=== PATIENT | male | born 1940 | race Caucasian/White ===

== ENCOUNTER → 2016-09-17 | Outpatient (CLI) | payer BC ==
[2016-09-17 10:13] LABS: ESTIMATED AVERAGE GLUCOSE 105 mg/dl; HA1C FLAG Normal (Normal)
[2016-09-17 10:39] LABS: ALT/SGPT 21 U/L (12-78); AST/SGOT 15 U/L (15-37); BLOOD UREA NITROGEN 9 mg/dl (7-18); BUN/CREATININE RATIO 12.6 (10-20); CALCIUM 9.3 mg/dl (8.5-10.1); CARBON DIOXIDE 31 mmol/L (21-32); CHLORIDE 104 mmol/L (98-107); CHOLESTEROL 189 mg/dl (0-200); CREATININE 0.72 mg/dl (0.60-1.40); GLUCOSE 76 mg/dl (70-99); SODIUM 143 mmol/L (136-145); TRIGLYCERIDES 195 mg/dl (0-150); VERY LOW DENSITY LIPOPROT CALC 39 mg/dl
[2016-09-17 10:41] LABS: ALB/GLOB RATIO 0.9 (0.9-2); ALKALINE PHOSPHATASE 76 U/L (45-117); CHOLESTEROL/HDL RATIO 3.1; HDL CHOLESTEROL 61 mg/dl; LDL CHOLESTEROL CALCULATED 89 mg/dl
--- NOTE | 2016-09-21 10:09 | CODING QUERY MEDICAL NECESSITY ---
SUPPORTING DIAGNOSIS NEEDED A supporting diagnosis is required for the test/procedure performed on this patient in order for us to be reimbursed by the patient's insurance. Please provide a supporting diagnosis for the following test/procedure listed below next to the test name along with your signature. *If there is no additional diagnosis for this patient that would support the following test/procedure please document that below next to the test/procedure. Test(s)/Procedure(s) that require a supporting diagnosis: * GLYCATED HEMOGLOBIN DIAGNOSIS: * DOS: 09/17/16 Provider Signature: Date: Thank you Joaquina Phelan Health Information Management Once completed, please kindly fax back to [phone] For questions please call [phone]
== END | disposition home or self-care (01) ==
LOC: C.LAB1850 09:13
PROVIDERS: ATTEND Family Medicine
DX: E78.00 Pure hypercholesterolemia, unspecified (principal); R73.03 Prediabetes

== ENCOUNTER → 2017-04-02 | Outpatient (CLI) | payer BC ==
[2017-04-02 12:19] LABS: ALT/SGPT 22 U/L (12-78); BLOOD UREA NITROGEN 14 mg/dl (7-18); BUN/CREATININE RATIO 18.8 (10-20); CALCIUM 9.5 mg/dl (8.5-10.1); CARBON DIOXIDE 31 mmol/L (21-32); CHLORIDE 105 mmol/L (98-107); CHOLESTEROL 198 mg/dl (0-200); CREATININE 0.74 mg/dl (0.60-1.40); GLUCOSE 81 mg/dl (70-99); POTASSIUM 4.3 mmol/L (3.5-5.1); SODIUM 141 mmol/L (136-145)
[2017-04-02 12:22] LABS: ALB/GLOB RATIO 0.9 (0.9-2); ALKALINE PHOSPHATASE 75 U/L (45-117); AST/SGOT 16 U/L (15-37); CHOLESTEROL/HDL RATIO 3.5; HDL CHOLESTEROL 57 mg/dl; LDL CHOLESTEROL CALCULATED 114 mg/dl; TRIGLYCERIDES 134 mg/dl (0-150); VERY LOW DENSITY LIPOPROT CALC 27 mg/dl
== END | disposition home or self-care (01) ==
LOC: C.LAB1850 10:15
PROVIDERS: ATTEND Family Medicine
DX: E78.00 Pure hypercholesterolemia, unspecified (principal); R73.03 Prediabetes

== ENCOUNTER 2021-01-28 09:04 | Inpatient (IN) ==
--- NOTE | 2021-01-28 09:21 | Emergency Department Note ---
Impression & Plan Pneumonia, Hypoxia ED Provider Note NAME: POLLY CHIN JR AGE: 80 SEX: M : 1940 ARRIVES VIA: Walk-In INFORMANT: Patient ED PROVIDER(S): River Cabral DO CHIEF COMPLAINT: Chest pain and Shortness of breath HPI: Patient is a 80-year-old male who presents to the ER for shortness of breath. It has been present for the past 3 days getting significantly worse. He admits to a recent trip from [place] down to [place] and across to [place]. He did this all by driving. He notes right-sided lower chest pain. He has shortness of breath with any kind of exertion. Denies any belly pain nausea vomiting or diarrhea. No dysuria, urgency, or frequency. No other exacerbating or remitting factors. No blood thinners. No history of COPD or asthma but does admit to smoking for 50 years. No oxygen requirements. ROS: See above HPI for pertinent positives & negatives. A total of 10 systems reviewed and were otherwise negative. PAST MEDICAL HISTORY:See Below PAST SURGICAL HISTORY:See Below FAMILY HISTORY:See Below SOCIAL HISTORY:See Below HOME MEDICATIONS:See Below ALLERGIES:See Below VITALS:See Below PHYSICAL EXAMINATION: GENERAL: Sitting up in bed, alert, well appearing, well nourished, no distress, non-toxic EYE EXAM: normal conjunctiva. OROPHARYNX: no exudate, no erythema, lips, buccal mucosa, and tongue normal and mucous membranes are moist NECK: supple, no nuchal rigidity, no adenopathy, non-tender LUNGS: Clear to auscultation. Normal chest wall mechanics HEART: no murmurs, S1 normal and S2 normal ABDOMEN: abdomen soft, non-tender, normo-active bowel sounds, no masses, no rebound or guarding. UPPER EXTREMITIES: upper extremities are grossly normal. LOWER EXTREMITIES: No pitting edema. Calves are equal bilateral NEURO EXAM: Normal sensorium, cranial nerves II-XII grossly intact, normal speech, no gross weakness of arms, no gross weakness of legs. MEDICAL DECISION MAKING: Patient is a 80-year-old male who presents the ER for shortness of breath with a recent history of travel. Found to be hypoxic at 86% on room air. IV was established blood was obtained. He was placed on 2 L nasal cannula. Labs show leukocytosis of 13,000. No significant anemia. BMP with slightly elevated glucose. LFTs bilirubin troponin was negative. Lipase was normal. Covid was ordered and pending. He was given IV Rocephin and azithromycin. He was updated bedside. Discussed with Dr. Zambrano and admitted for further work-up following a negative CT angio of the chest which showed a multifocal pneumonia but no PEs. Triage Nursing notes reviewed. Limited review of prior medical records performed Vital Signs: reviewed and remarkable for Hypoxia Differential diagnosis: Differential diagnoses includes but is not limited to pneumonia, bronchitis, COPD/Asthma exacerbation, pneumothorax, pulmonary embolism, congestive heart failure, acute coronary syndrome ER treatment provided: See below Diagnostics interpreted by me: ECG: Sinus rhythm rate of 69 Left axis Poor baseline Incomplete right bundle QTC 411 Cardiac Monitoring: An order was placed for continuous cardiac monitoring. The monitor shows a rate of 62 with sinus rhythm. Laboratory studies: As stated above and show below. Imaging studies: CT angio chest shows multifocal pneumonia Consultation(s): Discussed with not any hospitalist Nevaeh Zambrano for admission Procedures: none Critical Care: I have personally spent 45 minutes of critical care time in the direct management of this patient. This includes bedside care, interpretation of diagnostic studies, and testing, discussion with consultants, patient, and family members, and other required patient management activities. This 45 minutes is in excess of all separately billable procedures. 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 left wrist Hypercholesterolemia Ocular migraine Prediabetes Surgical History Hx of tonsillectomy Family History Grandmother Brain cancer Mother Depression Father Dementia Hyperlipidemia Son Coronary heart disease Denies family history of Colon cancer Ovarian cancer Prostate cancer Myocardial infarction Social History Smoking Status: Former smoker Tobacco Type: Cigarettes Age Started Using Tobacco: 16; Age Quit Using Tobacco: 66; packs per day: 1; Years Smoked: 50; Hx Alcohol Use: Yes Alcohol type: beer Alcohol Intake Frequency Comment: 1-2/ daily Hx Substance Use: No marital status: Single Current Living Situation: Alone Current Living Situation Comment: w/ 2 dogs current occupational status: retired Feels Safe at Home: Yes Diet Comment: avoids yeast and alcohols adding in more veggies less red meat Dental Care, Regularly: No Physical Activity Frequency: 3-4 Times per Week Physical Activity Frequency Comment: yard work, wood cutting Seatbelt Use: sometimes Do you think of yourself as: straight/heterosexual Allergies Allergies Allergy/AdvReac Type Severity Reaction Status Date / Time No Known Drug Allergies Allergy Unknown Verified 01/28/21 10:07 coconut AdvReac Severe passes out Unverified 01/28/21 10:09 Home Meds Home Medications Medication Instructions Recorded Confirmed pravastatin 20 mg PO HS 01/28/21 01/28/21 Previous Rx's Medication Instructions Recorded diph,pertuss(acel),tet vac(PF) 2 0.5 ml IM ONCE #0.5 ml 12/03/20 Lf-(2.5-5-3-5mcg)-5 Lf/0.5 mL IM syringe varicella-zoster glycoE [id number] 0.5 ml IM ONCE #1 ea 12/03/20 adj(PF) 50 mcg/0.5 mL IM susp, kit Results & Data (ED) Vital Signs Vital Signs - 24 hr 01/28/21 09:07 01/28/21 09:20 01/28/21 09:26 Temperature 36.9 C Temperature Source Temporal Artery Scan Oral Pulse Rate 76 67 Pulse Rate from SpO2 Sensor 67 Respiratory Rate 20 22 Respiratory Effort / Characteristics Non-Labored Spontaneous Short of Breath Respiratory Depth Normal Normal Respiratory Pattern Regular Blood Pressure 122/63 Blood Pressure Mean 82 Blood Pressure Position Sitting Pulse Oximetry 86 L 86 L 96 Oxygen Delivery Method Room Air Nasal Cannula Oxygen Flow Rate 0 Sepsis Recent Fever Within 48 Hours No Sepsis New/Unexplained Change in Mental Status N/A Sepsis Action Taken by Nursing No Action Required Oxygen Flow Rate - Titration 2 Pulse Oximetry Post Tiitration 95 01/28/21 09:30 01/28/21 09:53 01/28/21 10:00 Temperature Temperature Source Pulse Rate 66 71 69 Pulse Rate from SpO2 Sensor 68 71 68 Respiratory Rate 22 Respiratory Effort / Characteristics Respiratory Depth Respiratory Pattern Blood Pressure 145/89 H 129/73 Blood Pressure Mean 107 91 Blood Pressure Position Pulse Oximetry 95 94 94 Oxygen Delivery Method Oxygen Flow Rate Sepsis Recent Fever Within 48 Hours Sepsis New/Unexplained Change in Mental Status Sepsis Action Taken by Nursing Oxygen Flow Rate - Titration Pulse Oximetry Post Tiitration 01/28/21 10:30 01/28/21 11:00 01/28/21 11:30 Temperature Temperature Source Pulse Rate 67 77 62 Pulse Rate from SpO2 Sensor 67 70 64 Respiratory Rate 26 H Respiratory Effort / Characteristics Respiratory Depth Respiratory Pattern Blood Pressure 118/59 L 120/61 Blood Pressure Mean 78 80 Blood Pressure Position Pulse Oximetry 91 Oxygen Delivery Method Oxygen Flow Rate Sepsis Recent Fever Within 48 Hours Sepsis New/Unexplained Change in Mental Status Sepsis Action Taken by Nursing Oxygen Flow Rate - Titration Pulse Oximetry Post Tiitration 01/28/21 12:00 01/28/21 12:30 01/28/21 13:24 Temperature Temperature Source Pulse Rate 64 66 55 L Pulse Rate from SpO2 Sensor Respiratory Rate 29 H 24 27 H Respiratory Effort / Characteristics Respiratory Depth Respiratory Pattern Blood Pressure 114/57 L 117/63 123/85 Blood Pressure Mean 76 81 97 Blood Pressure Position Pulse Oximetry Oxygen Delivery Method Oxygen Flow Rate Sepsis Recent Fever Within 48 Hours Sepsis New/Unexplained Change in Mental Status Sepsis Action Taken by Nursing Oxygen Flow Rate - Titration Pulse Oximetry Post Tiitration Laboratory Data Result diagrams: 01/28/21 09:27 01/28/21 09:27 Lab Results 01/28/21 01/28/21 01/28/21 Range/Units 09:27 09:27 09:27 WBC 13.79 H (4.8-10.8) K/uL RBC 4.59 L (4.7-6.1) M/uL Hgb 13.1 L (14.0-18.0) g/dL POC Hgb (14.0-18.0) g/dl Hct 42.3 (42-52) % POC Hct (42-52) % MCV 92.2 (80-100) fL MCH 28.5 (25-34) pg MCHC 31.0 L (32-36) g/dL RDW Std Deviation 50.9 H (36.4-46.3) fL RDW Coeff of Merle 15.1 H (11.5-14.5) % Plt Count 254 (130-400) K/uL MPV 10.0 (7.4-10.4) fL Immature Gran % (Auto) 0.1 % Neut % (Auto) 82.0 % Lymph % (Auto) 11.5 % Sargent % (Auto) 6.2 % Eos % (Auto) 0.1 % Baso % (Auto) 0.1 % Neut # (Auto) 11.30 H (1.4-6.5) K/uL Lymph # (Auto) 1.58 (1.2-3.4) K/uL Sargent # (Auto) 0.85 H (0.11-0.59) K/uL Eos # (Auto) 0.02 (0-0.5) K/uL Baso # (Auto) 0.02 (0-0.2) K/uL Immature Gran # (Auto) 0.02 (0.00-0.02) K/uL ESR (0-20) mm/hr APTT 32.2 H (21.0-31.0) Seconds PTT Ratio 1.2 POC Sodium (135-144) mmol/L Sodium 140 (136-145) mmol/L POC Potassium (3.3-5.0) mmol/L Potassium 3.9 (3.5-5.1) mmol/L POC Chloride (101-112) mmol/L Chloride 105 (98-107) mmol/L Carbon Dioxide 33 H (21-32) mmol/L POC Total CO2 (24-31) mmol/L Anion Gap 2.0 L (3-11) POC Anion Gap (16-25) mmol/L POC BUN (7-18) mg/dl BUN 17 (7-18) mg/dl Creatinine 0.78 (0.6-1.4) mg/dl POC Creatinine (0.6-1.3) mg/dl Est Cr Clr Drug Dosing 95.8 ml/min Est GFR ( Amer) 100.2 ml/min Est GFR (Non-Af Amer) 86.5 ml/min BUN/Creatinine Ratio 21.4 H (10-20) Glucose 107 H (70-99) mg/dl POC Glucose (other) (70-99) mg/dl Calcium 9.2 (8.5-10.1) mg/dl POC Ioniz Calcium Luis (1.12-1.32) mmol/l Total Bilirubin 0.9 (0.2-1) mg/dl AST 25 (15-37) U/L ALT 36 (12-78) U/L Alkaline Phosphatase 98 (45-117) U/L Troponin I < 0.015 (0-0.045) ng/ml Total Protein 8.2 (6.4-8.2) gm/dl Albumin 2.9 L (3.4-5.0) gm/dl Globulin 5.3 H (2.5-4.0) gm/dl Albumin/Globulin Ratio 0.5 L (0.9-2) Lipase 206 (73-393) U/L COVID-19 Eval Order SARS-CoV-2 (PCR) (Negative) 01/28/21 01/28/21 01/28/21 Range/Units 09:27 09:34 10:35 WBC (4.8-10.8) K/uL RBC (4.7-6.1) M/uL Hgb (14.0-18.0) g/dL POC Hgb 13.9 L (14.0-18.0) g/dl Hct (42-52) % POC Hct 41 L (42-52) % MCV (80-100) fL MCH (25-34) pg MCHC (32-36) g/dL RDW Std Deviation (36.4-46.3) fL RDW Coeff of Merle (11.5-14.5) % Plt Count (130-400) K/uL MPV (7.4-10.4) fL Immature Gran % (Auto) % Neut % (Auto) % Lymph % (Auto) % Sargent % (Auto) % Eos % (Auto) % Baso % (Auto) % Neut # (Auto) (1.4-6.5) K/uL Lymph # (Auto) (1.2-3.4) K/uL Sargent # (Auto) (0.11-0.59) K/uL Eos # (Auto) (0-0.5) K/uL Baso # (Auto) (0-0.2) K/uL Immature Gran # (Auto) (0.00-0.02) K/uL ESR 93 H (0-20) mm/hr APTT (21.0-31.0) Seconds PTT Ratio POC Sodium 142 (135-144) mmol/L Sodium (136-145) mmol/L POC Potassium 3.9 (3.3-5.0) mmol/L Potassium (3.5-5.1) mmol/L POC Chloride 101 (101-112) mmol/L Chloride (98-107) mmol/L Carbon Dioxide (21-32) mmol/L POC Total CO2 28 (24-31) mmol/L Anion Gap (3-11) POC Anion Gap 18.0 (16-25) mmol/L POC BUN 16 (7-18) mg/dl BUN (7-18) mg/dl Creatinine (0.6-1.4) mg/dl POC Creatinine 0.7 (0.6-1.3) mg/dl Est Cr Clr Drug Dosing ml/min Est GFR ( Amer) ml/min Est GFR (Non-Af Amer) ml/min BUN/Creatinine Ratio (10-20) Glucose (70-99) mg/dl POC Glucose (other) 112 H (70-99) mg/dl Calcium (8.5-10.1) mg/dl POC Ioniz Calcium Luis 1.14 (1.12-1.32) mmol/l Total Bilirubin (0.2-1) mg/dl AST (15-37) U/L ALT (12-78) U/L Alkaline Phosphatase (45-117) U/L Troponin I (0-0.045) ng/ml Total Protein (6.4-8.2) gm/dl Albumin (3.4-5.0) gm/dl Globulin (2.5-4.0) gm/dl Albumin/Globulin Ratio (0.9-2) Lipase (73-393) U/L COVID-19 Eval Order Covid19 at [facility] SARS-CoV-2 (PCR) (Negative) 01/28/21 Range/Units 10:35 WBC (4.8-10.8) K/uL RBC (4.7-6.1) M/uL Hgb (14.0-18.0) g/dL POC Hgb (14.0-18.0) g/dl Hct (42-52) % POC Hct (42-52) % MCV (80-100) fL MCH (25-34) pg MCHC (32-36) g/dL RDW Std Deviation (36.4-46.3) fL RDW Coeff of Merle (11.5-14.5) % Plt Count (130-400) K/uL MPV (7.4-10.4) fL Immature Gran % (Auto) % Neut % (Auto) % Lymph % (Auto) % Sargent % (Auto) % Eos % (Auto) % Baso % (Auto) % Neut # (Auto) (1.4-6.5) K/uL Lymph # (Auto) (1.2-3.4) K/uL Sargent # (Auto) (0.11-0.59) K/uL Eos # (Auto) (0-0.5) K/uL Baso # (Auto) (0-0.2) K/uL Immature Gran # (Auto) (0.00-0.02) K/uL ESR (0-20) mm/hr APTT (21.0-31.0) Seconds PTT Ratio POC Sodium (135-144) mmol/L Sodium (136-145) mmol/L POC Potassium (3.3-5.0) mmol/L Potassium (3.5-5.1) mmol/L POC Chloride (101-112) mmol/L Chloride (98-107) mmol/L Carbon Dioxide (21-32) mmol/L POC Total CO2 (24-31) mmol/L Anion Gap (3-11) POC Anion Gap (16-25) mmol/L POC BUN (7-18) mg/dl BUN (7-18) mg/dl Creatinine (0.6-1.4) mg/dl POC Creatinine (0.6-1.3) mg/dl Est Cr Clr Drug Dosing ml/min Est GFR ( Amer) ml/min Est GFR (Non-Af Amer) ml/min BUN/Creatinine Ratio (10-20) Glucose (70-99) mg/dl POC Glucose (other) (70-99) mg/dl Calcium (8.5-10.1) mg/dl POC Ioniz Calcium Luis (1.12-1.32) mmol/l Total Bilirubin (0.2-1) mg/dl AST (15-37) U/L ALT (12-78) U/L Alkaline Phosphatase (45-117) U/L Troponin I (0-0.045) ng/ml Total Protein (6.4-8.2) gm/dl Albumin (3.4-5.0) gm/dl Globulin (2.5-4.0) gm/dl Albumin/Globulin Ratio (0.9-2) Lipase (73-393) U/L COVID-19 Eval Order SARS-CoV-2 (PCR) NEGATIVE (Negative) Administered Medications Discontinued Medications Azithromycin (Azithromycin 250 Mg Tab) 500 mg PO NOW ONE Stop: 01/28/21 10:23 Last Admin: 01/28/21 10:30 Dose: 500 mg Documented by: [id number] Ceftriaxone Sodium (Rocephin) 1,000 mg in 50 mls @ 100 mls/hr IV NOW STA Stop: 01/28/21 10:51 Last Infusion: 01/28/21 11:07 Dose: 0 mls/hr Documented by: [id number] Admin: 01/28/21 10:30 Dose: 100 mls/hr Documented by: [id number] Ioversol (Optiray 320 125ml) 120 ml IV ONCE ONE Stop: 01/28/21 09:45 Last Admin: 01/28/21 09:44 Dose: 120 ml Documented by: [id number] Imaging Data Radiologist's Impression: Chest CTA 01/28/21 09:20 CT ANGIOGRAM OF THE CHEST CLINICAL HISTORY: Cough and dyspnea. COMPARISON STUDY: Chest x-ray dated 12/02/2015. TECHNIQUE: Following the IV administration of 120 cc of Optiray 320, CT angiogram of the chest was performed from the upper abdomen to the thoracic i nlet utilizing the pulmonary embolus protocol. Images are reviewed in the axial, sagittal, and coronal planes. 3-D MIPS images are created and assessed. IV contrast was administered without complication. A dose lowering technique was utilized adhering to the principles of ALARA. CT DOSE: 545.17 mGy.cm FINDINGS: Thyroid: Imaged portions of the thyroid gland are normal in size and attenuation. Thoracic aorta: There is mild atherosclerotic calcification of the thoracic aorta. There is nonaneurysmal dilatation of the ascending thoracic aorta which measures up to 4.1 cm in diameter. The remainder of the thoracic aorta is normal in caliber and the arch demonstrates bovine variant anatomy. No dissection is seen. Pulmonary vasculature: The pulmonary trunk is normal in caliber. There are no filling defects identified in main, lobar, or segmental pulmonary branches to suggest pulmonary embolus. Evaluation of the peripheral branches is degraded by motion artifact. Heart: The heart is mildly enlarged and without pericardial effusion. Lungs and pleural spaces: Emphysematous change is noted. There is extensive pat dominga airspace consolidation throughout the right upper lobe. Mild consolidative changes seen in the right middle and right lower lobes. The left lung appears clear. There is a small right pleural effusion. The trachea and central airways are patent. Mediastinum: There is no mediastinal lymphadenopathy. Mary: Mildly enlarged right hilar nodes measure up to 13 mm in short axis. These are likely reactive. Axillae: There is no axillary lymphadenopathy. Upper abdomen: There is a tiny hiatal hernia. Subcentimeter cysts are noted in the liver. Skeletal structures: The skeletal structures are osteopenic. Mild degenerative change is seen throughout the thoracic spine. No lytic or blastic bony lesions are seen. IMPRESSION: 1. There is no evidence of pulmonary embolus in the main, lobar, or segmental pulmonary arteries. 2. Cardiomegaly and emphysema. 3. Multifocal airspace consolidation is seen throughout the right lung, most confluent in the right upper lobe. The appearance is typical for multifocal pneumonia. Clinical correlation will be required and radiographic follow-up to resolution is recommended. 4. Small right parapneumonic effusion. 5. Additional findings as above. ACT 112: Negative or not required by law. Electronically signed by: Wei Ramirez M.D. 01/28/2021 10:25 AM Discharge Plan Visit Data Chief Complaint: Shortness of Breath/Dyspnea Stated Complaint: SOB, ABDOMINAL PAIN ED Provider: River Cabral Discharge Problem: Pneumonia, Hypoxia Forms Stand Alone Forms: [facility] Prescriptions Prescriptions: No Action Adacel(Tdap Adolesn/Adult)(PF) 2 Lf-(2.5-5-3-5 mcg)-5Lf/0.5 mL syringe 0.5 ml IM ONCE Qty: 0.5 RF: 0 Shingrix (PF) 50 mcg/0.5 mL suspension for reconstitution 0.5 ml IM ONCE Qty: 1 RF: 1 pravastatin 20 mg tablet 20 mg PO HS RF: 0 Discharge Problem: Pneumonia Qualifiers: Pneumonia type: due to unspecified organism Laterality: unspecified laterality Lung location: unspecified part of lung Qualified Code(s): J18.9 - Pneumonia, unspecified organism
[2021-01-28 09:42] LABS: Basophils # (auto) 0.02 K/uL (0-0.2); Basophils % (auto) 0.1 %; Eosinophils # (auto) 0.02 K/uL (0-0.5); Eosinophils % (auto) 0.1 %; Hematocrit (blood only) 42.3 % (42-52); Hemoglobin 13.1 g/dL (14.0-18.0); Immature Granulocytes # (auto) 0.02 K/uL (0.00-0.02); Immature Granulocytes % (auto) 0.1 %; Lymphocytes # (auto) 1.58 K/uL (1.2-3.4); Lymphocytes % (auto) 11.5 %; Mean Corpuscular Hemoglobin 28.5 pg (25-34); Mean Corpuscular Volume 92.2 fL (80-100); Monocytes # (auto) 0.85 K/uL (0.11-0.59); Monocytes % (auto) 6.2 %; Platelet Count 254 K/uL (130-400); RDW Coefficient of Variation 15.1 % (11.5-14.5); RDW Standard Deviation 50.9 fL (36.4-46.3); Red Blood Count 4.59 M/uL (4.7-6.1); White Blood Count 13.79 K/uL (4.8-10.8)
[2021-01-28] MEDS ORDERED: OPTIRAY 320 125ml IV ONE (09:44)
[2021-01-28 09:46] LABS: iSTAT Creatinine 0.7 mg/dl (0.6-1.3); iSTAT Hemoglobin 13.9 g/dl (14.0-18.0); iSTAT Ionized Calcium 1.14 mmol/l (1.12-1.32); iSTAT Potassium 3.9 mmol/L (3.3-5.0)
[2021-01-28 09:53] LABS: Partial Thromboplastin Ratio 1.2; Partial Thromboplastin Time 32.2 Seconds (21.0-31.0)
[2021-01-28 10:01] LABS: Alanine Aminotransferase 36 U/L (12-78); Albumin Level 2.9 gm/dl (3.4-5.0); Aspartate Aminotransferase 25 U/L (15-37); BUN Creatinine Ratio 21.4 (10-20); Blood Urea Nitrogen 17 mg/dl (7-18); Calcium 9.2 mg/dl (8.5-10.1); Carbon Dioxide 33 mmol/L (21-32); Chloride 105 mmol/L (98-107); Creatinine Clr Calc Pharmacy 95.8 ml/min; Est GFR (African American) 100.2 ml/min; Est GFR (Non-African American) 86.5 ml/min; Glucose 107 mg/dl (70-99); Lipase 206 U/L (73-393); Potassium 3.9 mmol/L (3.5-5.1); Sodium 140 mmol/L (136-145)
[2021-01-28 10:06] LABS: Albumin Globulin Ratio 0.5 (0.9-2); Alkaline Phosphatase 98 U/L (45-117); Bilirubin,Total 0.9 mg/dl (0.2-1); Globulin 5.3 gm/dl (2.5-4.0); Total Protein 8.2 gm/dl (6.4-8.2); Troponin I < 0.015 ng/ml (0-0.045)
[2021-01-28] MEDS ORDERED: AZITHROMYCIN 250 MG TAB PO ONE (10:22)
[2021-01-28] MEDS ORDERED: cefTRIAXone SODIUM 1,000 MG/50 ML BAG IV STA (10:22)
--- NOTE | 2021-01-28 10:26 | CT Scan Report ---
CT ANGIOGRAM OF THE CHEST CLINICAL HISTORY: Cough and dyspnea. COMPARISON STUDY: Chest x-ray dated 12/02/2015. TECHNIQUE: Following the IV administration of 120 cc of Optiray 320, CT angiogram of the chest was pe rformed from the upper abdomen to the thoracic inlet utilizing the pulmonary embolus protocol. Images are reviewed in the axial, sagittal, and coronal planes. 3-D MIPS images are created and assessed. I V contrast was administered without complication. A dose lowering technique was utilized adhering to the principles of ALARA. CT DOSE: 545.17 mGy.cm FINDINGS: Thyroid: Imaged portions of the thyroid gland are normal in size and attenuation. Thoracic aorta: There is mild atherosclerotic calcification of the thoracic aorta. There is nonaneury smal dilatation of the ascending thoracic aorta which measures up to 4.1 cm in diameter. The remainde r of the thoracic aorta is normal in caliber and the arch demonstrates bovine variant anatomy. No dis section is seen. Pulmonary vasculature: The pulmonary trunk is normal in caliber. There are no filling defects identif ied in main, lobar, or segmental pulmonary branches to suggest pulmonary embolus. Evaluation of the p eripheral branches is degraded by motion artifact. Heart: The heart is mildly enlarged and without pericardial effusion. Lungs and pleural spaces: Emphysematous change is noted. There is extensive patchy airspace consolida tion throughout the right upper lobe. Mild consolidative changes seen in the right middle and right l ower lobes. The left lung appears clear. There is a small right pleural effusion. The trachea and rosie tral airways are patent. Mediastinum: There is no mediastinal lymphadenopathy. Mary: Mildly enlarged right hilar nodes measure up to 13 mm in short axis. These are likely reactive. Axillae: There is no axillary lymphadenopathy. Upper abdomen: There is a tiny hiatal hernia. Subcentimeter cysts are noted in the liver. Skeletal structures: The skeletal structures are osteopenic. Mild degenerative change is seen through out the thoracic spine. No lytic or blastic bony lesions are seen. IMPRESSION: 1. There is no evidence of pulmonary embolus in the main, lobar, or segmental pulmonary arteries. 2. Cardiomegaly and emphysema. 3. Multifocal airspace consolidation is seen throughout the right lung, most confluent in the right u pper lobe. The appearance is typical for multifocal pneumonia. Clinical correlation will be required and radiographic follow-up to resolution is recommended. 4. Small right parapneumonic effusion. 5. Additional findings as above. ACT 112: Negative or not required by law. Electronically signed by: Wei Ramirez M.D. 01/28/2021 10:25 AM
[2021-01-28] MEDS ORDERED: ALBUT/IPRATROP 3MG/0.5MG NEB 3 ML VIAL NEB PRN (12:53)
--- NOTE | 2021-01-28 12:59 | History & Physical Report ---
Date of Service January 28, 2021 Assessment & Plan (1) Pneumonia: Multifocal Pneumonia: Consolidation on CXR, pleuritic chest pain, WBC 13.79, on supplemental oxygen, no sputum production - blood culture, sputum culture pending - Legionella, mycoplasma, influenza A/B, aspergillus- pending - COVID negative - Continue Rocephin and Azithromycin- if clinical course changes would change to Zosyn for pseudomonal coverage - No evidence of shock/.organ dysfunction - CRP 23, ESR, 93, PCT <0.015 - with associated pleural effusion, small no acute need to tap - Follow clinically if course worsens consider BAL- If effusion increases diagnostic evaluation and culture -Continue oxygen support for SPO2 >92%; HFNC available if needed. (2) Hypoxia: Emphsyematous changes on CT scan of lung - not on chronic home inhalers or oxygen - Infective atelectasis lucinda - scheduled Combivent inhalers for dyspnea/hypoxia- re-evaluate efficacy/need (3) Prediabetes: Follow in house - regular diet for now - coverage if >180 notify provider (4) Hypercholesterolemia: Continue statin (5) DVT prophylaxis: Lovenox SQ History of Present Illness Primary Care Provider: Delta Avitia, III, IRRIGATIONIST 80 YOM with past medical history of: HLD, Tick bite in November, hand fracture. Patient comes to the emergency room for evaluation of right pleuritic chest pain and dyspnea. This has been ongoing for the the past 5 days. This started with increase in dyspnea after walking about 50-75 feet, where he would have to stop and catch his breath. The pleuritic chest pain started around Wednesday and was getting worse. The patienthas received his COVD 19 vaccines and his influenza in 2019. His COVID 19 test is negative. The patient has spent the past 2 weeks traveling to [facility] where he spent time with his daughter and also helped clean out a salt water swimming pool, that he reports was "pretty dirty and mucky". They used chemicals to clean the pool and he did not wear a respirator. He then traveled from [place] to [place] and then to [facility]- this trip was done by car. He stayed in 2 different hotels at that time. When he got to [facility], [place] he flew back to [employer]. The persons he traveled with are not ill. He had a CTA of the chest performed in the EMD that was negative for PE, but with hyperdensity at the right upper lobe at the periphery, with patchy consolidation that extends into the middle lower lobe associated with small right pleural effusion. The patient denies any fevers or chills, he does have a cough but is nonproductive. He smoked up until he retired. He denies any other history of travel or pulmonary problems. In the [facility] he was started on Rocephin and Azithromycin. After hospitalist evaluation blood cultures, sputum cultures were ordered as well as other bio-mar kers, viral and bacterial serology. Patient will be admitted to the PCU and continue following his culture results as well as symptoms. Allergies Allergy/AdvReac Type Severity Reaction Status Date / Time No Known Drug Allergies Allergy Unknown Verified 01/28/21 10:07 coconut AdvReac Severe passes out Unverified 01/28/21 10:09 Home Medications Medication Instructions Recorded Confirmed Type diph,pertuss(acel),tet vac(PF) 2 0.5 ml IM ONCE #0.5 ml 12/03/20 12/03/20 Rx Lf-(2.5-5-3-5mcg)-5 Lf/0.5 mL IM syringe varicella-zoster glycoE vacc-AS01B 0.5 ml IM ONCE #1 ea 12/03/20 12/03/20 Rx adj(PF) 50 mcg/0.5 mL IM susp, kit pravastatin 20 mg PO HS 01/28/21 01/28/21 History Past Med/Surg History Medical History Erectile disorder due to medical 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 left wrist Hypercholesterolemia Ocular migraine Prediabetes Surgical History Hx of tonsillectomy Family History Grandmother Brain cancer Mother Depression Father Dementia Hyperlipidemia Son Coronary heart disease Denies family history of Colon cancer Ovarian cancer Prostate cancer Myocardial infarction Social History Smoking Status: Former smoker Tobacco Type: Cigarettes Age Started Using Tobacco: 16; Age Quit Using Tobacco: 66; packs per day: 1; Years Smoked: 50; Smoking End Date: 2006; Hx Alcohol Use: Yes Alcohol type: beer and wine Alcohol Intake Frequency Comment: 1-2/ daily Hx Substance Use: No Preferred Language: Estonian Communication Ability: Effective Pet [employer] Deboner Required: No Beliefs That Will Affect Care: None marital status: Single Current Living Situation: Alone Current Living Situation Comment: w/ 2 dogs current occupational status: retired Other Information That Helps Us Care for You: No Feels Safe at Home: Yes Safety Concerns: Feels Safe At This Time Diet Comment: avoids yeast and alcohols adding in more veggies less red meat Dental Care, Regularly: No Physical Activity Frequency: 3-4 Times per Week Physical Activity Frequency Comment: yard work, wood cutting Seatbelt Use: sometimes Do you think of yourself as: straight/heterosexual Assistive Devices: Denture - Upper and Denture - Lower Review of Systems Review of Systems: REVIEW OF SYSTEMS: Constitutional: No fever, sweats or chills Eyes: No diplopia, no worsening or blurred vision ENT: normal hearing, no trouble swallowing Respiratory: (+)right pleuritic chest pain, dyspnea at rest or on exertion, No cough, sputum, Cardiovascular: No chest pain, tightness or palpitations Abdomen: No pain, nausea, vomiting, diarrhea or constipation Musculoskeletal: No joint pain, calf pain, swelling Neurologic: No weakness, numbness/tingling, or balance problems Psychiatric: No anxiety or depression Skin: No rash or itch Physical Exam Physical Exam: PHYSICAL EXAM: General: awake, alert, no apparent distress Head: Normocephalic, atraumatic ENT: PERRL, EOMI, no pharyngeal exudate, mucous membranes moist Neuro: AAO x 3, speech clear and appropriate, strength intact bilaterally 5/5, sensation intact and equal all extremities and dermatomes, no pronator drift Chest: equal rise and fall of the chest, no accessory muscle use, no heaves or thrills, decreased air movement through lower 2/3 of airway, + fremitus, +egophany right>left upper, on 2LNC, Cardiac: Regular rate and rhythm, telemetry reviewed, skin warm dry, cap refill <3 seconds, peripheral pulses +2 no JVD, no murmur, no edema GI: NABS x 4 quadrants, soft, nontender to palpation, no rebound, guarding or tenderness : Spontaneously voiding, no pain, no CVA tenderness, Extremities: Normal inspection, no peripheral edema or erythema, calfs nontender to palpation Psych: Normal mood and affect Skin: no rash or erythema Results & Data Results & Data ([facility]) Vital Signs (Past 12 Hours) Vital Signs Temp Pulse Resp BP Pulse Ox 01/28/21 11:30 62 26 H 120/61 01/28/21 11:00 77 01/28/21 10:30 67 118/59 L 91 01/28/21 10:00 69 129/73 94 01/28/21 09:53 71 145/89 H 94 01/28/21 09:30 66 22 95 01/28/21 09:26 67 22 96 01/28/21 09:20 86 L 01/28/21 09:07 36.9 C 76 20 122/63 86 L Laboratory Results Abnormal lab results 01/28/21 01/28/21 01/28/21 Range/Units 09:27 09:27 09:27 WBC 13.79 H (4.8-10.8) K/uL RBC 4.59 L (4.7-6.1) M/uL Hgb 13.1 L (14.0-18.0) g/dL POC Hgb (14.0-18.0) g/dl POC Hct (42-52) % MCHC 31.0 L (32-36) g/dL RDW Std Deviation 50.9 H (36.4-46.3) fL RDW Coeff of Merle 15.1 H (11.5-14.5) % Neut # (Auto) 11.30 H (1.4-6.5) K/uL O'Brien # (Auto) 0.85 H (0.11-0.59) K/uL ESR (0-20) mm/hr APTT 32.2 H (21.0-31.0) Seconds Carbon Dioxide 33 H (21-32) mmol/L Anion Gap 2.0 L (3-11) BUN/Creatinine Ratio 21.4 H (10-20) Glucose 107 H (70-99) mg/dl POC Glucose (other) (70-99) mg/dl Albumin 2.9 L (3.4-5.0) gm/dl Globulin 5.3 H (2.5-4.0) gm/dl Albumin/Globulin Ratio 0.5 L (0.9-2) 01/28/21 01/28/21 Range/Units 09:27 09:34 WBC (4.8-10.8) K/uL RBC (4.7-6.1) M/uL Hgb (14.0-18.0) g/dL POC Hgb 13.9 L (14.0-18.0) g/dl POC Hct 41 L (42-52) % MCHC (32-36) g/dL RDW Std Deviation (36.4-46.3) fL RDW Coeff of Merle (11.5-14.5) % Neut # (Auto) (1.4-6.5) K/uL O'Brien # (Auto) (0.11-0.59) K/uL ESR 93 H (0-20) mm/hr APTT (21.0-31.0) Seconds Carbon Dioxide (21-32) mmol/L Anion Gap (3-11) BUN/Creatinine Ratio (10-20) Glucose (70-99) mg/dl POC Glucose (other) 112 H (70-99) mg/dl Albumin (3.4-5.0) gm/dl Globulin (2.5-4.0) gm/dl Albumin/Globulin Ratio (0.9-2) Diagnostic Findings Chest CTA 01/28/21 09:20 CT ANGIOGRAM OF THE CHEST CLINICAL HISTORY: Cough and dyspnea. COMPARISON STUDY: Chest x-ray dated 12/02/2015. TECHNIQUE: Following the IV administration of 120 cc of Optiray 320, CT angiogram of the chest was performed from the upper abdomen to the thoracic inlet utilizing the pulmonary embolus protocol. Images are reviewed in the axial, sagittal, and coronal planes. 3-D MIPS images are created and assessed. IV contrast was administered without complication. A dose lowering technique was utilized adhering to the principles of ALARA. CT DOSE: 545.17 mGy.cm FINDINGS: Thyroid: Imaged portions of the thyroid gland are normal in size and attenuation. Thoracic aorta: There is mild atherosclerotic calcification of the thoracic aort a. There is nonaneurysmal dilatation of the ascending thoracic aorta which measures up to 4.1 cm in diameter. The remainder of the thoracic aorta is normal in caliber and the arch demonstrates bovine variant anatomy. No dissection is seen. Pulmonary vasculature: The pulmonary trunk is normal in caliber. There are no filling defects identified in main, lobar, or segmental pulmonary branches to armstrong ggest pulmonary embolus. Evaluation of the peripheral branches is degraded by motion artifact. Heart: The heart is mildly enlarged and without pericardial effusion. Lungs and pleural spaces: Emphysematous change is noted. There is extensive patchy airspace consolidation throughout the right upper lobe. Mild consolidative changes seen in the right middle and right lower lobes. The left lung appears clear. There is a small right pleural effusion. The trachea and central airways are patent. Mediastinum: There is no mediastinal lymphadenopathy. Mary: Mildly enlarged right hilar nodes measure up to 13 mm in short axis. These are likely reactive. Axillae: There is no axillary lymphadenopathy. Upper abdomen: There is a tiny hiatal hernia. Subcentimeter cysts are noted in the liver. Skeletal structures: The skeletal structures are osteopenic. Mild degenerative change is seen throughout the thoracic spine. No lytic or blastic bony lesions are seen. IMPRESSION: 1. There is no evidence of pulmonary embolus in the main, lobar, or segmental pulmonary arteries. 2. Cardiomegaly and emphysema. 3. Multifocal airspace consolidation is seen throughout the right lung, most confluent in the right upper lobe. The appearance is typical for multifocal pneumonia. Clinical correlation will be required and radiographic follow-up to resolution is recommended. 4. Small right parapneumonic effusion. 5. Additional findings as above. Electronically signed by: Wei Ramirez M.D. 01/28/2021 10:25 AM Medications Administered Azithromycin (Azithromycin 250 Mg Tab) 500 mg PO NOW ONE Stop: 01/28/21 10:23 Last Admin: 01/28/21 10:30 Dose: 500 mg Documented by: [id number] Ceftriaxone Sodium (Rocephin) 1,000 mg in 50 mls @ 100 mls/hr IV NOW STA Stop: 01/28/21 10:51 Last Infusion: 01/28/21 11:07 Dose: 0 mls/hr Documented by: [id number] Admin: 01/28/21 10:30 Dose: 100 mls/hr Documented by: [id number] Ioversol (Optiray 320 125ml) 120 ml IV ONCE ONE Stop: 01/28/21 09:45 Last Admin: 01/28/21 09:44 Dose: 120 ml Documented by: [id number] ECG Additional Comments: Normal sinus rhythm Left axis deviation Incomplete right bundle branch block Abnormal ECG No previous ECGs available Code Status & VTE Plan Code Status CODE: FULL VTE: SCDS Supervising Physician Co-Signing Physician Notes IRRIGATIONIST Supervision note: I have personally seen and examined the patient and discussed and verified the lopez points of the history and physical along with the plan with VI Alvarado with the following exceptions and/or additions: This patient is a 80-year-old male with history of prediabetes hyperlipidemia who presents with 5 days of cough and shortness of breath with right-sided pleuritic chest pain. Found to have multifocal pneumonia on the right and hypoxia in the ER. Was placed on oxygen. With recent long car ride and travel around the [facility], [place] angiogram chest was performed which was negative for PE. He is negative for Covid. He was concerned about getting checked for Lyme disease given recent tick bite about 1 month ago and lives in the [facility]. This was negative. He has no chronic lung disease but does have a history of smoking. History and ROS reviewed as above Vitals reviewed Gen: AAOx3, NAD HEENT: Anicteric sclerae, EOMI CV: RRR no mgr nl S1S2 Pulm: Diminished breath sounds throughout, no wcr Abd: +BS soft NT ND no masses or hernias Ext: No edema, no calf tenderness Skin: No rashes, warm/dry Neuro: Full strength throughout Laboratory values and radiology studies reviewed 80-year-old male here with community-acquired pneumonia and acute respiratory failure with hypoxia Plan outlined as above Continue IV antibiotics, supplemental O2 to keep pulse ox greater 90% Pulmonary toilet Follow cultures and Legionella, Aspergillus PG Care Time/CCT Total # of Minutes Spent Total Time Spent with Patient: Total time spent is greater than 50% in coordination of care (as documented) at patient's floor/unit and/or counseling patient: Coding Level of Care Code 25832 Initial Inpt Care Lvl 3 Diagnoses Pneumonia J18.9 Laterality: unspecified laterality Lung location: unspecified part of lung Pneumonia type: due to unspecified organism Hypoxia R09.02 Prediabetes R73.03 Hypercholesterolemia E78.00 DVT prophylaxis Z29.9 (1) Pneumonia Laterality: unspecified laterality Lung location: unspecified part of lung Pneumonia type: due to unspecified organism Qualified Code(s): J18.9 - Pneumonia, unspecified organism
[2021-01-28] MEDS ORDERED: ACETAMINOPHEN 325 MG TAB PO PRN (14:43)
[2021-01-28] MEDS: ENOXAPARIN INJ 40 MG/0.4 ML SYR SQ SCH (16:28)
[2021-01-28 17:02] LABS: Lyme Ab IgG w/WB Rflx Negative (Negative); Lyme Ab IgM w/WB Rflx Negative (Negative)
[2021-01-28] MEDS ORDERED: ALBUT/IPRATROP 3MG/0.5MG NEB 3 ML VIAL NEB SCH (18:00)
[2021-01-28] MEDS: ALBUT/IPRATROP 3MG/0.5MG NEB 3 ML VIAL NEB SCH (19:14)
[2021-01-28] MEDS: PRAVASTATIN SOD 20 MG TAB PO SCH (20:22)
[2021-01-28 23:40] LABS: Adenovirus PCR Not Detected (NotDetected); Bordetella parapertussis PCR Not Detected (NotDetected); Bordetella pertussis PCR Not Detected (NotDetected); Chlamydia pneumoniae PCR Not Detected (NotDetected); Coronavirus 229E PCR Not Detected (NotDetected); Coronavirus CoV-2 (COVID19)PCR Not Detected (NotDetected); Coronavirus HKU1 PCR Not Detected (NotDetected); Coronavirus NL63 PCR Not Detected (NotDetected); Coronavirus OC43PCR Not Detected (NotDetected); Human Metapneumovirus PCR Not Detected (NotDetected); Influenza A PCR Not Detected (NotDetected); Influenza B PCR Not Detected (NotDetected); Mycoplasma pneumoniae PCR Not Detected (NotDetected); Parainfluenza Virus 1 PCR Not Detected (NotDetected); Parainfluenza Virus 2 PCR Not Detected (NotDetected); Parainfluenza Virus 3 PCR Not Detected (NotDetected); Parainfluenza Virus 4 PCR Not Detected (NotDetected); Respiratory Syncytial VirusPCR Not Detected (NotDetected); Rhinovirus/Enterovirus PCR Not Detected (NotDetected)
[2021-01-29] MEDS: ALBUT/IPRATROP 3MG/0.5MG NEB 3 ML VIAL NEB SCH ×3 (00:03→12:28)
[2021-01-29] MEDS: AZITHROMYCIN 250 MG TAB PO SCH (07:45)
[2021-01-29] MEDS: ENOXAPARIN INJ 40 MG/0.4 ML SYR SQ SCH (07:45)
[2021-01-29] MEDS: cefTRIAXone SODIUM 2,000 MG in DEXTROSE 5% 50 ML IV SCH (07:47)
[2021-01-29] MEDS: PRAVASTATIN SOD 20 MG TAB PO SCH (19:56)
--- NOTE | 2021-01-29 22:13 | Hospitalist Progress Note ---
Date of Service January 29, 2021 Assessment & Plan (1) Pneumonia: Multifocal Pneumonia: Consolidation on CXR, pleuritic chest pain, WBC 13.79, on supplemental oxygen, no sputum production - blood culture, sputum culture pending - Legionella, mycoplasma, influenza A/B, aspergillus- pending - COVID negative - Continue Rocephin and Azithromycin- if clinical course changes would change to Zosyn for pseudomonal coverage - No evidence of shock/.organ dysfunction - CRP 23, ESR, 93, PCT <0.015 - with associated pleural effusion, small no acute need to tap - Follow clinically if course worsens consider BAL- If effusion increases diagnostic evaluation and culture -Continue oxygen support for SPO2 >92%; HFNC available if needed. Patient is improving, on intermittent oxygen. Will continue current management: abx: azithromycin and ceftriaxone. (2) Hypoxia: Emphsyematous changes on CT scan of lung - not on chronic home inhalers or oxygen - Infective atelectasis lucinda - scheduled Combivent inhalers for dyspnea/hypoxia- re-evaluate efficacy/need (3) Prediabetes: Follow in house - regular diet for now - coverage if >180 notify provider (4) Hypercholesterolemia: Continue statin (5) DVT prophylaxis: Lovenox SQ Admission and Anticipated Discharge Date Admission Date: January 28, 2021 Subjective 80 yo male reports feeling better. Review of Systems Review of Systems: All systems reviewed & are unremarkable except as noted in HPI & below Physical Exam Physical Exam: General: awake, alert, no apparent distress Head: Normocephalic, atraumatic ENT: PERRL, EOMI, no pharyngeal exudate, mucous membranes moist Neuro: AAO x 3, speech clear and appropriate, strength intact bilaterally 5/5, sensation intact and equal all extremities and dermatomes, no pronator drift Chest: equal rise and fall of the chest, no accessory muscle use, no heaves or thrills, improved airways Cardiac: Regular rate and rhythm, telemetry reviewed, skin warm dry, cap refill <3 seconds, peripheral pulses +2 no JVD, no murmur, no edema GI: NABS x 4 quadrants, soft, nontender to palpation, no rebound, guarding or tenderness : Spontaneously voiding, no pain, no CVA tenderness, Extremities: Normal inspection, no peripheral edema or erythema, calfs nontender to palpation Psych: Normal mood and affect Skin: no rash or erythema Results & Data Results & Data ([facility]) Vital Signs (Past 12 Hours) Vital Signs Temp Pulse Pulse Resp BP Pulse Ox 01/29/21 19:00 36.7 C 72 18 124/64 99 01/29/21 15:24 36.6 C 62 18 108/59 L 90 01/29/21 12:28 71 16 93 01/29/21 11:14 36.8 C 63 18 114/67 90 PG Care Time/CCT Total # of Minutes Spent Total Time Spent with Patient: Total time spent is greater than 50% in coordination of care (as documented) at patient's floor/unit and/or counseling patient: Coding Level of Care Code 40004 Subseq Hosp Care Lvl 2 Diagnoses Pneumonia J18.9 Laterality: unspecified laterality Lung location: unspecified part of lung Pneumonia type: due to unspecified organism Hypoxia R09.02 Prediabetes R73.03 Hypercholesterolemia E78.00 DVT prophylaxis Z29.9 Time Spent (min) 25 (1) Pneumonia Laterality: unspecified laterality Lung location: unspecified part of lung Pneumonia type: due to unspecified organism Qualified Code(s): J18.9 - Pneumonia, unspecified organism
[2021-01-30] MEDS: ENOXAPARIN INJ 40 MG/0.4 ML SYR SQ SCH (07:51)
[2021-01-30] MEDS: AZITHROMYCIN 250 MG TAB PO SCH (07:51)
[2021-01-30] MEDS: cefTRIAXone SODIUM 2,000 MG in DEXTROSE 5% 50 ML IV SCH (07:59)
--- NOTE | 2021-01-30 08:55 | Electrocardiogram Report ---
Test Reason : Blood Pressure : / mmHG Vent. Rate : 069 BPM Atrial Rate : 069 BPM P-R Int : 138 ms QRS Dur : 104 ms QT Int : 384 ms P-R-T Axes : 073 -35 071 degrees QTc Int : 411 ms Poor data quality, interpretation may be adversely affected Normal sinus rhythm Left axis deviation Incomplete right bundle branch block Abnormal ECG No previous ECGs available Confirmed by Shabbir Frey ([id number]) on 01/30/2021 8:55:00 AM Referred By: Delta Avitia Confirmed By:Shabbir Frey
--- NOTE | 2021-01-31 12:19 | Discharge Summary ---
Date of Service January 30, 2021 Admission HPI Per Admitting Provider 80 YOM with past medical history of: HLD, Tick bite in November, hand fracture. Patient comes to the emergency room for evaluation of right pleuritic chest pain and dyspnea. This has been ongoing for the the past 5 days. This started with increase in dyspnea after walking about 50-75 feet, where he would have to stop and catch his breath. The pleuritic chest pain started around Wednesday and was getting worse. The patienthas received his COVD 19 vaccines and his influenza in 2019. His COVID 19 test is negative. The patient has spent the past 2 weeks traveling to [facility] where he spent time with his daughter and also helped clean out a salt water swimming pool, that he reports was "pretty dirty and mucky". They used chemicals to clean the pool and he did not wear a respirator. He then traveled from [place] to [place] and then to [facility]- this trip was done by car. He stayed in 2 different hotels at that time. When he got to [facility] he flew back to [employer]. The persons he traveled with are not ill. He had a CTA of the chest performed in the [facility] that was negative for PE, but with hyperdensity at the right upper lobe at the periphery, with patchy consolidation that extends into the middle lower lobe associated with small right pleural effusion. The patient denies any fevers or chills, he does have a cough but is nonproductive. He smoked up until he retired. He denies any other history of travel or pulmonary problems. In the [facility] he was started on Rocephin and Azithromycin. After hospitalist evaluation blood cultures, sputum cultures were ordered as well as other bio- markers, viral and bacterial serology. Patient will be admitted to the PCU and continue following his culture results as well as symptoms. Principal Diagnosis Community acquired Pneumonia Discharge Exam General: awake, alert, no apparent distress Head: Normocephalic, atraumatic ENT: PERRL, EOMI, no pharyngeal exudate, mucous membranes moist Neuro: AAO x 3, speech clear and appropriate, strength intact bilaterally 5/5, sensation intact and equal all extremities and dermatomes, no pronator drift Chest: equal rise and fall of the chest, no accessory muscle use, no heaves or thrills, improved airways Cardiac: Regular rate and rhythm, telemetry reviewed, skin warm dry, cap refill <3 seconds, peripheral pulses +2 no JVD, no murmur, no edema GI: NABS x 4 quadrants, soft, nontender to palpation, no rebound, guarding or tenderness : Spontaneously voiding, no pain, no CVA tenderness, Extremities: Normal inspection, no peripheral edema or erythema, calfs nontender to palpation Psych: Normal mood and affect Skin: no rash or erythema Discharge Data Allergies Allergy/AdvReac Type Severity Reaction Status Date / Time No Known Drug Allergies Allergy Unknown Verified 01/28/21 10:07 coconut AdvReac Severe passes out Unverified 01/28/21 10:09 Consultations 01/28/21 10:59 ED Decision to Admit Stat Ordered Studies 01/28/21 09:20 CT angio chest PE protocol Stat Hospital Course (1) Pneumonia: Multifocal Pneumonia: Consolidation on CXR, pleuritic chest pain, WBC 13.79, on supplemental oxygen, no sputum production - blood culture, sputum culture pending - Legionella, mycoplasma, influenza A/B, aspergillus- pending - COVID negative - Continue Rocephin and Azithromycin- if clinical course changes would change to Zosyn for pseudomonal coverage - No evidence of shock/.organ dysfunction - CRP 23, ESR, 93, PCT <0.015 - with associated pleural effusion, small no acute need to tap - Follow clinically if course worsens consider BAL- If effusion increases diagnostic evaluation and culture -Continue oxygen support for SPO2 >92%; HFNC available if needed. Patient is improving, on intermittent oxygen. 2 step required oxygen on ambulation Will discharge on abx: azithromycin and cefuroxime. Patient is feeling beter and did not want to stay overnight. Due to recent fever, recommended staying. But patient reported he would sign out AMA. WILL DISCHARGE HIM WITH HOLT INSTRUCTIONS TO RETURN if feeling worse: SOB, fever, chills, weakness. (2) Hypoxia: Emphsyematous changes on CT scan of lung - not on chronic home inhalers or oxygen - Infective atelectasis lucinda - scheduled Combivent inhalers for dyspnea/hypoxia- re-evaluate efficacy/need (3) Prediabetes: Follow in house - regular diet for now - coverage if >180 notify provider (4) Hypercholesterolemia: Continue statin (5) DVT prophylaxis: Lovenox SQ Total Time Total Time Spent Total Time Spent (In Minutes): 32 Total Time Includes: Examination of the Patient, Discharge Planning and Medication Reconciliation Discharge Plan Discharge Items Patient Disposition: Home - Self-Care Reason For Visit: PNEUMONIA Discharge Diagnosis: Pneumonia Activity: Resume your previous activity Non-emergency contact: Primary Care Provider Call non-emergency contact if: you have any medication questions Follow-up/Referrals: Delta Avitia III, CRNP [Primary Care Provider] - 02/06/21 9:20 am Diet: Regular Addtl Attending Provider Instructions: will discharge on Antibiotics for Pneumonia. recommend followup with Primary care provider in 1-2 weeks Pending Studies at Discharge: No Stand-Alone Forms: [employer], Smoking Cessation Medications and DC Order Prescriptions: New cefuroxime axetil 500 mg tablet 500 mg PO BID Qty: 8 RF: 0 azithromycin 250 mg tablet 250 mg PO DAILY Qty: 2 RF: 0 Continued Shingrix (PF) 50 mcg/0.5 mL suspension for reconstitution 0.5 ml IM ONCE Qty: 1 RF: 1 pravastatin 20 mg tablet 20 mg PO HS RF: 0 Discharge Orders: Discharge Order (Routine); Ordered 01/30/21 Ordered By: Shivam He Admission Data Admit Date/Time: 01/28/21 13:40 Attending Provider: Shivam He Admit Provider: Nevaeh Zambrano Primary Care Provider: Delta Avitia III Other Providers: Nevaeh Zambrano Other Interventions: Discharge Summary Assessment (RN) Last Done: 01/30/21 16:20 Coding Level of Care Code D/C Day Management >30 mins Diagnoses Pneumonia J18.9 Laterality: unspecified laterality Lung location: unspecified part of lung Pneumonia type: due to unspecified organism Hypoxia R09.02 Prediabetes R73.03 Hypercholesterolemia E78.00 DVT prophylaxis Z29.9
[2021-02-04 19:16] LABS: Aspergillus Flavus Negative (Negative); Aspergillus Niger Negative (Negative); Mycoplasma pneumoniae Ab, IgM 100 U/mL (<770)
== END 2021-01-30 16:21 | disposition home or self-care (01) | DRG 194 ==
LOC: ED 09:04 → 2S 13:40 → SUATTDRO 13:40 → 2S 14:24